=== PATIENT | female | born 1975 | race Caucasian/White ===

== ENCOUNTER 2016-06-23 08:06 | Inpatient (IN) ==
[2016-06-23] MEDS ORDERED: Ringers Solution, Lactated 2,000 ML ONE (08:39)
[2016-06-23] MEDS ORDERED: Metoclopramide 10 MG/2 ML VIAL IVP ONE (08:40)
[2016-06-23] MEDS ORDERED: Famotidine 20 MG/2 ML VIAL IVP ONE (08:40)
[2016-06-23] MEDS ORDERED: CeFAZolin Pre 3,000 MG/100 ML 3,000 MG/100 ML BAG IVPB ONE (08:40)
[2016-06-23] MEDS ORDERED: Oxytocin 20 units/ LR 1000 mL 20 UNIT/1,000 ML BAG IVC ONE (08:40)
[2016-06-23] MEDS ORDERED: Ringers Solution, Lactated 1,000 ML IVC ONE (08:40)
[2016-06-23] MEDS ORDERED: Ringers Solution, Lactated 1,000 ML IVC SCH ×2 (08:45→10:00)
[2016-06-23] MEDS ORDERED: Oxytocin 20 units/ LR 1000 mL 20 UNIT/1,000 ML BAG IVC SCH (08:45)
[2016-06-23 08:57] LABS: Basophils % 0.3 %; Eosinophils # 0.1 K/mcL (0.0-0.6); Eosinophils % 1.1 %; Hematocrit 28.1 % (35.3-44.9); Hemoglobin 8.9 g/dL (11.5-15.4); Immature Granulocytes % 0.4 % (0-4); Lymphocytes # 2.2 K/mcL (0.6-4.6); Lymphocytes % 28.3 %; Mean Corpuscular HGB Conc 31.7 g/dL (31.6-35.5); Mean Corpuscular Hemoglobin 26.7 pg (28.0-33.3); Mean Corpuscular Volume 84.4 fL (83.0-100.0); Mean Platelet Volume 9.6 fL (9.4-12.4); Monocytes # 0.5 K/mcL (0.0-1.3); Monocytes % 5.7 %; Nucleated Red Blood Cells 0.3 /100 WBC (0); Platelet Count 240 K/mcL (140-400); Red Blood Count 3.33 M/mcL (3.82-4.97); Red Cell Distribution Width 14.7 % (11.5-14.5); Segmented Neutrophils % 64.2 %
--- NOTE | 2016-06-23 09:46 | OB/GYN History & Physical ---
Date of Encounter: 06/23/16 Time of Encounter: 09:43 Assessment and Plan (1) delivery due to maternal disorder Current visit: Yes Status: Acute -Patient had myomectomies x2, due to leiomyomas .Maternal medicine consultation recommended delivery 36-37 weeks due to myomectomies. -Will do c-sections as planned. -Monitor Hgb (currently >8.0) (2) 38 weeks gestation of Current visit: Yes Status: Acute -csection scheduled for today. (3) AMA (advanced maternal age) multigravida 35+ Current visit: Yes Status: Acute Qualifiers: Trimester: third trimester Qualified Code(s): O09.523 - Supervision of elderly multigravida, third trimester History of Present Illness Chief complaint: scheduled csection HPI: Ms. Gaines is a 40 year old female, , 38w c/c scheduled due to myomectomy. She has had 2 myomectomy, one vertical and one horizontal. Today , patient has no complaints or concerns. Denies headache, nausea, vomiting, CP, SOB, abdominal pain,vaginal bleeding or discharge. Denies any history of bleeding disorders or family bleeding disorders, smoking, drinking, drug use. Past Med Surg Social Fam HX - Past Medical History Psychiatric history: no psych history - Social History Smoking Status: Never smoker Smokeless Tobacco Status: No Alcohol use: none, rarely Drug use: none - Family History Mother Living Status: Still Living Hx Family Endocrine Disorder: Yes (DIABETES) Obstetrical History - Pregnancies : 2 Para: 0 Livin Medications and Allergies Vitamins 1 tab PO DAILY 06/23/16 [History] Allergies No Known Allergies Allergy (Verified 04/23/15 10:11) Review of System OB - Cardiovascular Cardiovascular: as per HPI, no irregular heart rhythm - Respiratory Respiratory: no cough, no dyspnea - Genitourinary Genitourinary: as per HPI - Integumentary Integumentary: no lesions, no pruritus Exam - Constitutional Constitutional: well developed, well nourished, no acute distress, average body habitus - HEENT HEENT: Normocephaly - Lungs Respiratory exam: CTAB - Cardiovascular Cardiovascular exam: RRR - Abdomen Abdomen: Present: non tender - Uterus Uterus exam: Present: enlarged Results Result Diagrams: 06/23/16 08:30 Abnormal lab results RBC 3.33 M/mcL (3.82-4.97) L 06/23/16 08:30 Hgb 8.9 g/dL (11.5-15.4) L 06/23/16 08:30 Hct 28.1 % (35.3-44.9) L 06/23/16 08:30 MCH 26.7 pg (28.0-33.3) L 06/23/16 08:30 RDW 14.7 % (11.5-14.5) H 06/23/16 08:30 Nucleated RBCs/100 WBC 0.3 /100 WBC (0) H 06/23/16 08:30 All other labs normal.
--- NOTE | 2016-06-23 09:54 | Anesthesia Evaluation PreOp ---
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 Significant HX Other Medical History: Other (uterine fibroids, myomectomy x 2) Anesthesia History: No Prior Anesthetic Complications, Past Anesthesia ( myomectomy x 2, T&A) : Yes Alcohol Use: none, rarely Drug use: none Medications and Allergies Vitamins 1 tab PO DAILY 06/23/16 [History] Allergies No Known Allergies Allergy (Verified 04/23/15 10:11) - Meds/Allergy Pre-op Review Medications Reviewed: Yes Allergies Reviewed: Yes Beta Blockers on Current Med List: No Anesthesia Results - Labs 06/23/16 08:30 Anesthesia Exam BP 122/71 P 85 Spo2 97 R 16 FHT 140s Height: 5'10" Weight: 127kg NPO (# of Hours): 8 Pain Scale: 0 Pain Scale Used: Numeric (1 - 10) - HEENT Pupil (Motor): Pupils equal Mallampati: II Teeth: Normal Oral Opening: Greater than 3 - GUN REPAIR CLERK LOC: Oriented GUN REPAIR CLERK Motor: Normal RUE, Normal LUE, Normal RLE, Normal LLE, Normal Face GUN REPAIR CLERK Sensory: Normal: RUE, LUE, RLE, LLE, Face - Cardiac Rhythm: Regular Murmur: None JVD: No Carotid Bruit: No - Pulmonary Breath Sounds: bilateral Clear Respiratory Effort: Symmetrical Anesthesia Assess/Plan ASA Score: 2 Modified Juan Manuel Scale for Level of Consciousness: Cooperative, oriented, and tranquil Anesthetic Plan: Regional Autologous Blood: No Monitoring Plan: Standard Monitors Recovery Plan: Other
[2016-06-23] MEDS ORDERED: *HR* Promethazine 25 MG/ML VIAL IVP PRN (09:56)
[2016-06-23] MEDS ORDERED: *HR* HYDROmorphone (PF) 1 MG/ML SYRINGE IVP PRN (09:56)
[2016-06-23] MEDS ORDERED: *HR* Morphine Sulfate/PF 5 MG/10 ML AMPUL ONE (10:49)
[2016-06-23] MEDS ORDERED: EPHEDrine 50 MG/ML VIAL ONE (11:06)
[2016-06-23] MEDS ORDERED: Dexamethasone 4 MG/ML VIAL ONE (11:17)
[2016-06-23] MEDS ORDERED: *HR* Oxytocin 10 UNIT/ML VIAL IM ONE (11:17)
[2016-06-23] MEDS ORDERED: Ondansetron 4 MG/2 ML VIAL ONE (11:17)
--- NOTE | 2016-06-23 11:35 | Anesthesia Procedures ---
Date of Encounter: 06/23/16 Time of Encounter: 10:50 Procedures: Anesthesia - Epidural/Spinal Patient ID/Chart reviewed: Yes Patient examined: Yes OB Eval: : 2 OB Eval: Hx Para: 0 OB Eval: Contractions: Non-stressed pattern Consent Obtained: Yes Supplemental Oxygen: None/Room Air Site Prep: Aseptic Technique, Sterile prep and drape, Povidone-Iodine 1% Patient position: upright Local Anesthetic: Lidocaine 1% Amount of Local Anesthetic used: 3 Interspace Used: L4-L5 Loss of Resistance (LUNA): No Blood: No CSF: Yes Paresthesia: No Spinal Needle Gauge: 25 Spinal Dose: marcaine 0.75% 1.8ml duramorph 250mcg Procedure: Spinal placed in upright position 1st pass without any immediate noted complications. VSS throughout. Pt supine for repeat csection. Vitals + FHT's: See anesthesia record.
--- NOTE | 2016-06-23 13:17 | OB/GYN Procedure Note ---
Section - Date of procedure: 06/23/16 Preop diagnosis: other (Previous myomectomy) Post-op diagnosis: same (Small bowel and large bowel adhesions) Procedure: primary low transverse, other (lysis of adhesions , repair of incidental small bowel enterotomy) Surgeon: Shane Whalen Estimated blood loss (cc): 700 Anesthesiologist: Felice Villarreal Privacy Specialist: Michael Herrmann Anesthesia Type: Spinal section complications: other (Incidental small bowel enterotomy ) Specimens: Placenta - Infant (s) A Delivery Date: 06/23/16 Delivery Time: 11:23 Presentation: vertex Position: MARSHALL Gender: Female Viability: Viable Pounds: 8 Ounces: 3 at 1 minute: 8 at 5 minutes: 9 Placenta: complete extraction - Narrative Narrative: Patient was taken to the operating room. After satisfactory spinal anesthesia was achieved, she was placed in supine position and Sykes catheter inserted and prepped and draped in usual manner. After appropriate timeout, the abdomen was entered through standard Maylard incision. The Zulma retractor was placed. The peritoneum overlying the lower uterine segment was incised in the U-shaped fashion. Uterine cavity was sharply and extended laterally. Fluid was clear. With fundal pressure and vacuum assistance the head was delivered. suctioned upon delivery of the head. The remainder of the baby was delivered. The umbilical cord doubly clamped and cut and the infant was handed to nursing staff for further evaluation. Thick adhesions from the fundus of the uterus to the abdominal wall were lysed. The uterus was then exteriorized. The uterus closed with 0 Monocryl in a single layer. Posterior aspect of the uterus inspected and there were large bowel adhesions to the left aspect of the uterus on to the left tube and ovary. These areas were lysed sharply and bluntly dissection. After assurance of hemostasis, the uterus placed back within the abdominal cavity. The Zulma retractor was removed. Prior to closing of the abdomen, there was a small small bowel enterotomy noted near the right fascial dissection approximately 3 cm in length. The enterotomy was repaired using 3-0 Vicryl reapproximating the enterotomy in using 3-0 silk to oversew the defect. Minimal spillage was noted. This area was thoroughly irrigated. After assurance of hemostasis, the abdomen was closed in fashion using 0 Vicryl on the fascia and 3-0 Monocryl on the skin. A Tono dressing was placed. Patient was taken to recovery room in satisfactory condition. Counts were correct. Discussed the incidental enterotomy with the patient and her .
[2016-06-23] MEDS ORDERED: Simethicone 80 MG TAB.CHEW PO PRN (15:25)
[2016-06-23] MEDS ORDERED: *HR* OxyCODONE/APAP 5/325 TABLET PO PRN (15:25)
[2016-06-23] MEDS ORDERED: Metoclopramide 10 MG/2 ML VIAL IVP PRN (15:25)
[2016-06-23] MEDS ORDERED: Acetaminophen 325 MG TABLET PO PRN (15:25)
[2016-06-23] MEDS ORDERED: Ondansetron 4 MG/2 ML VIAL IVP PRN (15:25)
[2016-06-23] MEDS ORDERED: Sennosides 8.6 MG TABLET PO PRN (15:25)
--- NOTE | 2016-06-23 15:45 | Anesthesia Evaluation Post Op ---
Date of Encounter: 06/23/16 Time of Encounter: 15:44 - Vital Signs Vital Signs: Vital Signs Temperature 97.6 F 06/23/16 15:27 Pulse Rate 86 06/23/16 15:27 Respiratory Rate 18 06/23/16 15:27 Blood Pressure 109/65 06/23/16 15:27 O2 Sat by Pulse Oximetry 96 06/23/16 15:27 Temperature 97.6 F 06/23/16 15:27 Pulse Rate 86 06/23/16 15:27 Respiratory Rate 18 06/23/16 15:27 Blood Pressure 109/65 06/23/16 15:27 O2 Sat by Pulse Oximetry 96 06/23/16 15:27 - Lungs Lungs: Clear Ascult./Percussion - Airway Airway: Non-obstructed - Cardiovascular Regular Rate - Mental Status Mental Status: Alert & Oriented, Answers Appropriately - Pain Pain Scale: 0 - Nausea Vomiting Nausea Vomiting: Not Present - Hydration Hydration: NPO, Sykes catheter - Discharge PostOp Status: Transfer Patient to floor
[2016-06-23] MEDS ORDERED: Naloxone 0.4 MG/ML INJ IVP PRN (15:46)
[2016-06-23] MEDS ORDERED: *HR* Morphine 2 MG/ML SYRINGE IVP PRN (15:46)
[2016-06-23] MEDS: ceFAZolin 2,000 MG in D5% in Water 100 ML IVPB SCH (15:54)
[2016-06-23] MEDS: MetroNIDAZOLE 500 MG/100 ML 500 MG/100 ML BAG IVPB SCH (16:33)
[2016-06-23] MEDS ORDERED: Ringers Solution, Lactated 0 ML ONE (20:08)
[2016-06-23] MEDS: Oxytocin 20 units/ LR 1000 mL 20 UNIT/1,000 ML BAG IV SCH (20:12)
[2016-06-24] MEDS: ceFAZolin 2,000 MG in D5% in Water 100 ML IVPB SCH ×3 (00:21→15:28)
[2016-06-24] MEDS: MetroNIDAZOLE 500 MG/100 ML 500 MG/100 ML BAG IVPB SCH ×3 (01:35→18:30)
[2016-06-24 04:13] LABS: Basophils % 0.2 %; Eosinophils % 0.2 %; Hematocrit 28.8 % (35.3-44.9); Immature Granulocytes % 0.5 % (0-4); Lymphocytes # 1.6 K/mcL (0.6-4.6); Lymphocytes % 12.1 %; Mean Corpuscular HGB Conc 31.3 g/dL (31.6-35.5); Mean Corpuscular Hemoglobin 26.6 pg (28.0-33.3); Mean Corpuscular Volume 85.2 fL (83.0-100.0); Monocytes # 0.7 K/mcL (0.0-1.3); Monocytes % 5.1 %; Neutrophils # 10.9 K/mcL (1.6-8.9); Platelet Count 213 K/mcL (140-400); Red Blood Count 3.38 M/mcL (3.82-4.97); Red Cell Distribution Width 14.6 % (11.5-14.5); Segmented Neutrophils % 81.9 %
[2016-06-24] MEDS: Oxytocin 20 units/ LR 1000 mL 20 UNIT/1,000 ML BAG IV SCH (05:44)
[2016-06-24] MEDS: Ibuprofen 600 MG TABLET PO PRN ×2 (06:26→22:21)
[2016-06-24] MEDS ORDERED: NON-FORMULARY MEDICATION 1 EACH EACH (Prenatal Vitamins 1 TAB) PO SCH (09:00)
--- NOTE | 2016-06-24 09:09 | OB/GYN Progress Note ---
Date of Encounter: 06/24/16 Time of Encounter: 09:07 - Assessment and Plan (1) Status post section Current Visit: Yes Status: Acute patient doing well, don't advance diet until physician order, cont current inpt care Subjective - Subjective Interval history: saw and examined patient, she was , pain is under control, lochia is light, tolerating PO/ambulation, doing well Objective - Vital Signs Latest vital signs: Vital Signs Temp Pulse Resp BP Pulse Ox 06/24/16 08:15 98.2 F 69 16 96/65 95 06/24/16 04:08 98.6 F 80 16 103/69 98 06/24/16 00:52 97.9 F 83 16 99/63 95 06/23/16 20:00 97.5 F L 92 16 109/67 96 06/23/16 18:00 97.6 F 90 16 102/69 95 06/23/16 17:00 97.7 F 86 16 111/70 96 06/23/16 16:00 97.4 F L 90 16 109/72 97 06/23/16 15:30 97.4 F L 90 18 116/72 06/23/16 15:27 97.6 F 86 18 109/65 96 Intake and Output 06/23/16 06/24/16 06/24/16 23:59 07:59 15:59 Intake Total 200 / 200 1300 / 1300 Output Total 150 / 150 900 / 900 Balance 50 / 50 400 / 400 Intake: IV Fluids 200 / 200 1200 / 1200 Pitocin 20 unit In 1,000 1000 / 1000 ml @ 125 mls/hr IV .Q8H KRISHNA Rx#:[id number] Ancef 2,000 MG In 100 / 100 100 / 100 Dextrose 5% 100 ML @ 200 mls/hr IVPB Q8HR KRISHNA Rx#: [id number] Flagyl 500 MG/100 ML 500 100 / 100 100 / 100 mg In 100 ml @ 100 mls/hr IVPB Q8HR KRISHNA Rx#: [id number] Oral 100 / 100 Output: Catheter 150 / 150 900 / 900 Other: Weight 119.2 kg Patient Weight 06/24/16 23:59 Weight 119.2 kg - Exam Lungs: bilateral: normal Chest: Normal S1, Normal S2 Extremities: Present: normal Abdomen: Present: normal appearance Incision: Present: normal Uterus: Present: normal - Labs Labs: Laboratory Results - last 24 hr 06/24/16 03:52 WBC 13.3 H D RBC 3.38 L Hgb 9.0 L Hct 28.8 L MCV 85.2 MCH 26.6 L MCHC 31.3 L RDW 14.6 H Plt Count 213 MPV 9.0 L Immature Gran % 0.5 Seg Neutrophils % 81.9 Lymphocytes % 12.1 Monocytes % 5.1 Eosinophils % 0.2 Basophils % 0.2 Neutrophils # 10.9 H Lymphocytes # 1.6 Monocytes # 0.7 Eosinophils # 0.0 Basophils # 0.0
[2016-06-24] MEDS: Prenatal Vit/FA 1 EACH TABLET PO SCH (10:27)
[2016-06-24] MEDS ORDERED: Ringers Solution, Lactated 1,000 ML ONE (15:25)
[2016-06-25] MEDS: ceFAZolin 2,000 MG in D5% in Water 100 ML IVPB SCH ×2 (00:13→08:17)
[2016-06-25] MEDS: MetroNIDAZOLE 500 MG/100 ML 500 MG/100 ML BAG IVPB SCH ×2 (00:51→09:54)
[2016-06-25] MEDS: Ibuprofen 600 MG TABLET PO PRN (05:43)
[2016-06-25] MEDS: Prenatal Vit/FA 1 EACH TABLET PO SCH (08:16)
[2016-06-25 09:01] VITALS: BP 109/61
--- NOTE | 2016-06-25 10:16 | Discharge Summary ---
Date of Encounter: 06/25/16 Time of Encounter: 10:16 - Discharge Diagnosis (1) Status post section Priority: Primary Status: Acute Comments: Doing well without c/o. Pt aware of s/sx's to watch for regarding peritonitis. At this time no s/sx's so will d/c home. - Discharge Medications Prescriptions: OxyCODONE/APAP 5/325 [Percocet 5/325 MG] 1 each PO Q4HR PRN #40 tablet PRN Reason: post op pain Ibuprofen [Motrin] 600 mg PO Q6HR PRN #40 tablet PRN Reason: Cramping Docusate [Colace] 100 mg PO BID #60 capsule Home Medications: Vitamins 1 tab PO DAILY 06/23/16 [History] Docusate [Colace] 100 mg PO BID #60 capsule 06/25/16 [Rx] Ibuprofen [Motrin] 600 mg PO Q6HR PRN #40 tablet 06/25/16 [Rx] OxyCODONE/APAP 5/325 [Percocet 5/325 MG] 1 each PO Q4HR PRN #40 tablet 06/25/16 [Rx] Allergies/Adverse Reactions: Allergies No Known Allergies Allergy (Verified 04/23/15 10:11) Data Procedures and tests throughout hospitalization: Laboratory Tests 06/23/16 06/24/16 08:30 03:52 WBC 7.9 13.3 H D RBC 3.33 L 3.38 L Hgb 8.9 L 9.0 L Hct 28.1 L 28.8 L MCV 84.4 85.2 MCH 26.7 L 26.6 L MCHC 31.7 31.3 L RDW 14.7 H 14.6 H Plt Count 240 213 MPV 9.6 9.0 L Immature Gran % 0.4 0.5 Seg Neutrophils % 64.2 81.9 Lymphocytes % 28.3 12.1 Monocytes % 5.7 5.1 Eosinophils % 1.1 0.2 Basophils % 0.3 0.2 Neutrophils # 5.0 10.9 H Lymphocytes # 2.2 1.6 Monocytes # 0.5 0.7 Eosinophils # 0.1 0.0 Basophils # 0.0 0.0 Nucleated RBCs/100 WBC 0.3 H - Impressions Doing well, taking po without n/v. no s/sx's of infection. Date of admission: 06/23/16 08:06 Primary care physician: PCP NO - Patient Status Disposition: Home, Self-Care Condition: Good Functional capacity at discharge: independent ambulation - Discharge Instructions Follow Up With: Shane Whalen MD [Partnered Physician] - - Diet and Activity Activity: increase activity as tolerated Diet: advance to your usual diet Hospital Course COFFEE ATTENDANT Time Attestation: Total time spent providing and/or coordinating discharge services: Exam - Constitutional Vitals: Temp Pulse Resp BP Pulse Ox 98.1 F 80 16 109/61 95 06/25/16 08:00 06/25/16 08:00 06/25/16 08:00 06/25/16 08:00 06/25/16 08:00 General appearance IM: A&O X 3 - Respiratory Respiratory exam: Present: accessory muscle use, CTAB - Cardiovascular Cardiovascular exam IM: Present: RRR - GI/Abdominal GI/Abdominal exam IM: normal bowel sounds Incision: dressed - Extremities Exam Extremities exam IM: Present: full ROM - Neurological Exam Neurological exam: oriented X3 - VTE Documentation of Mechanical Device: Intermittent pneumatic compression device
== END 2016-06-25 13:20 | disposition home or self-care (01) | DRG 765 ==
LOC: 1NENULAB 08:06 → 1NENUOBS 15:17
PROVIDERS: ADMIT Obstetrics & Gynecology; ATTEND Obstetrics & Gynecology